=== PATIENT | male | born 1965 | race Caucasian/White ===

== ENCOUNTER 2018-04-23 14:19 | Day surgery (SDC) | payer OTHER ==
[~2018-04-23] VITALS: Ht 160 cm; Wt 65.3 kg
[2018-04-23 15:10] VITALS: Ht 160 cm; Wt 65.3 kg
[2018-04-23] MEDS ORDERED: NO MEDICATIONS (15:33)
[2018-04-23 15:37] VITALS: BP 137/72; PULSE 85; RESP 16
[2018-04-23] MEDS ORDERED: LIDOCAINE 4% SOLUTION 50 ML BTL ONE (15:49)
[2018-04-23 17:22] VITALS: BP 123/82; PULSE 86; RESP 12
[2018-04-23] MEDS ORDERED: MIDAZOLAM 1 MG/ML 2 ML INJ ONE ×2 (17:51)
[2018-04-23] MEDS ORDERED: FENTAnyl 50 MCG/ML VIAL ONE (17:51)
== END 2018-04-23 17:20 | disposition home or self-care (01) ==
LOC: GIL 14:19
PROVIDERS: ATTEND Internal Medicine Gastroenterology
DX: R19.5 Other fecal abnormalities (principal); D12.5 Benign neoplasm of sigmoid colon; K64.1 Second degree hemorrhoids
CPT/HCPCS: 43239; 45385; 88305; 88313; J2250; J3010; Z7610